=== PATIENT | female | born 1960 | race African-American/Black ===

== ENCOUNTER 2016-10-31 11:55 | Inpatient (IN) | payer OTHER ==
[~2016-10-31] VITALS: Ht 154.9 cm; Wt 81.8 kg
[2016-10-31] MEDS ORDERED: ASPIR 8181 MG (15:28)
[2016-10-31] MEDS ORDERED: GLUCOPHAGE XR500 MG (15:28)
[2016-10-31] MEDS ORDERED: LISINOPRIL2.5 MG (15:28)
[2016-10-31] MEDS ORDERED: CENTRUM CHEWAB1 EACH (15:28)
[2016-10-31] MEDS ORDERED: ATORVASTATIN CA40 M1 (15:28)
[2016-10-31] MEDS ORDERED: ADALAT CC30 MG (15:29)
[2016-10-31] MEDS ORDERED: ZIPSOR25 MG (15:29)
[2016-10-31] MEDS ORDERED: ZIA10 (15:29)
[2016-10-31 16:17] LABS: BASOPHIL % 1.1 % (0-2); PLATELET COUNT 182 x10^3mcL (130-400); RED CELL DISTRIBUTION WIDTH 13.9 % (11.5-14.5)
[2016-10-31 16:30] LABS: ALBUMIN 3.8 g/dL (3.4-5.0); ALKALINE PHOSPHATASE 58 U/L (46-116); ALT/SGPT 39 U/L (14-59); AMYLASE 55 U/L (25-115); AST/SGOT 28 U/L (15-37); BILIRUBIN TOTAL 0.36 mg/dL (0.20-1.00); CARBON DIOXIDE 25.8 mmol/L (21-32); CHLORIDE SERUM 105 mmol/L (98-107); CHOLESTEROL 139 mg/dL (<200); CHOLESTEROL/HDL RATIO 3.5; CREATININE SERUM 0.7 mg/dL (0.6-1.0); GFR1 > 60 mL/min; GLUCOSE SERUM 80 mg/dL (74-106); HDL CHOLESTEROL 40 mg/dL (40-60); LACTIC DEHYDROGENASE (LDH) 146 U/L (100-190); LIPASE 120 IU/L (73-393); PHOSPHOROUS 3.1 mg/dL (2.5-4.9); POTASSIUM SERUM 3.8 mmol/L (3.5-5.1); SODIUM SERUM 142 mmol/L (136-145); TOTAL PROTEIN, SERUM 7.7 g/dL (6.4-8.2); TRIGLYCERIDES 147 mg/dL (<150)
[2016-10-31 16:50] LABS: FREE T4 1.07 ng/dL (0.76-1.46); FREE THYROXINE INDEX 3.2 ug/dL (1.4-4.5)
[2016-10-31 17:06] LABS: T3 TOTAL 0.97 ng/mL
[2016-10-31 17:27] LABS: RED BLOOD CELLS 2.33 M/mm3 (4.10-5.10)
[2016-10-31 17:32] LABS: IRON 76 ug/dL (50-170); TOTAL IRON BINDING CAPACITY 324 ug/dL (250-450)
[2016-10-31 17:40] LABS: rbc morphology (normal/abnorm) ABNORMAL (NORMAL)
[2016-10-31 17:46] VITALS: BP 137/64
[2016-10-31 17:53] VITALS: Ht 154.9 cm; Wt 81.8 kg
[2016-10-31 19:23] LABS: microscopic required? YES; urine erythrocyte 1+ (NEGATIVE)
[2016-10-31 19:32] LABS: AMPHETAMINE QUAL UR NONE DETECTED (NEG <=1000)
[2016-10-31 21:20] VITALS: BP 107/67
[2016-11-01 05:28] VITALS: BP 116/67
[2016-11-01 06:57] LABS: PLATELET COUNT 246 x10^3mcL (130-400)
[2016-11-01 06:59] LABS: CALCIUM 8.5 mg/dL (8.5-10.1); CARBON DIOXIDE 22.7 mmol/L (21-32); CHLORIDE SERUM 109 mmol/L (98-107); CREATININE SERUM 0.8 mg/dL (0.6-1.0); GFR1 > 60 mL/min; GLUCOSE SERUM 120 mg/dL (74-106); MAGNESIUM 2.3 mg/dL (1.8-2.4); PHOSPHOROUS 3.6 mg/dL (2.5-4.9); POTASSIUM SERUM 3.7 mmol/L (3.5-5.1); SODIUM SERUM 143 mmol/L (136-145)
[2016-11-01 07:34] LABS: BASOPHIL % 0.2 % (0-2); RED CELL DISTRIBUTION WIDTH 14.3 % (11.5-14.5)
[2016-11-01 09:42] LABS: rbc morphology (normal/abnorm) ABNORMAL (NORMAL)
[2016-11-01 10:21] VITALS: BP 125/75; BP 126/75
[2016-11-01 13:16] VITALS: BP 128/70
[2016-11-01 17:40] VITALS: BP 111/64
[2016-11-01 21:25] VITALS: BP 105/71
[2016-11-02 06:02] VITALS: BP 97/59
[2016-11-02 07:30] LABS: CALCIUM 8.2 mg/dL (8.5-10.1); CARBON DIOXIDE 25.8 mmol/L (21-32); CHLORIDE SERUM 107 mmol/L (98-107); CREATININE SERUM 0.7 mg/dL (0.6-1.0); GFR1 > 60 mL/min; GLUCOSE SERUM 95 mg/dL (74-106); MAGNESIUM 2.2 mg/dL (1.8-2.4); PHOSPHOROUS 3.3 mg/dL (2.5-4.9); POTASSIUM SERUM 3.3 mmol/L (3.5-5.1); SODIUM SERUM 141 mmol/L (136-145)
[2016-11-02 08:24] LABS: BASOPHIL % 0.6 % (0-2); PLATELET COUNT 232 x10^3mcL (130-400)
[2016-11-02 09:30] VITALS: BP 105/55
[2016-11-02] MEDS ORDERED: BIA500 PO (11:01)
[2016-11-02] MEDS ORDERED: AMO500 PO (11:01)
[2016-11-02] MEDS ORDERED: FERG PO (11:02)
[2016-11-02] MEDS ORDERED: VITC PO (11:03)
[2016-11-02] MEDS ORDERED: PRI20 PO (11:03)
[2016-11-02 11:06] LABS: rbc morphology (normal/abnorm) ABNORMAL (NORMAL)
[2016-11-02 11:20] LABS: rbc morphology (normal/abnorm) ABNORMAL (NORMAL)
[2016-11-02 12:47] VITALS: BP 123/71
[2016-11-02 13:34] VITALS: BP 123/71
[2016-11-02 18:05] VITALS: BP 116/73
== END 2016-11-02 18:10 | disposition home or self-care (01) | DRG 241 ==
LOC: ED 11:55 → DU 15:00
PROVIDERS: Family Medicine; Internal Medicine Gastroenterology; ADMIT Family Medicine
PROC: 0DB98ZX Excision of Duodenum, Via Natural or Artificial Opening Endoscopic, Diagnostic (ICD-10-PCS; principal; 2016-11-01 09:15)
PROC: 0DJD8ZZ Inspection of Lower Intestinal Tract, Via Natural or Artificial Opening Endoscopic (ICD-10-PCS; 2016-11-01 09:15)
DX: K26.9 Duodenal ulcer, unspecified as acute or chronic, without hemorrhage or perforation (principal); N17.0 Acute kidney failure with tubular necrosis; I10 Essential (primary) hypertension; E11.9 Type 2 diabetes mellitus without complications; K92.2 Gastrointestinal hemorrhage, unspecified; Z98.51 Tubal ligation status; Z79.82 Long term (current) use of aspirin; G90.9 Disorder of the autonomic nervous system, unspecified; D62 Acute posthemorrhagic anemia; E07.9 Disorder of thyroid, unspecified
CPT/HCPCS: 43235; 45378; 82962; 83880; 84439; G0480; J1200; J1610; J2250; J2310; J2765; J2916; J3010; J3480; J3490; J7030; Q0092